=== PATIENT | male | born 1995 | race Caucasian/White ===

== ENCOUNTER 2017-06-08 14:22 | Inpatient (IN) | payer OTHER ==
[~2017-06-08] VITALS: Ht 167.6 cm; Wt 57.7 kg
[2017-06-08] MEDS ORDERED: ONDANSETRON 2MG/ML, 2ML ONE (14:54)
[2017-06-08] MEDS ORDERED: SODIUM CHLORIDE 0.9% 1,000ML IVBOLUS ONE ×2 (15:00)
[2017-06-08] MEDS ORDERED: SODIUM CHLORIDE FLUSH 10ML SYR IVF ONE ×2 (15:00)
[2017-06-08 15:05] LABS: PH, VENOUS 7.172 pH (7.320-7.420)
[2017-06-08 15:13] LABS: HEMATOCRIT 61.4 % (39.2-51.8); HEMOGLOBIN 20.7 g/dL (13.7-18.0); WHITE BLOOD COUNT 30.2 x10^3/uL (4.5-13.2)
[2017-06-08 15:18] LABS: DIFF TOTAL CELLS COUNTED 100 CELL DIFF
[2017-06-08 15:22] LABS: BLOOD UREA NITROGEN 31 mg/dL (7-18)
[2017-06-08 15:25] LABS: ASPARTATE AMINO TRANSFERASE 25 U/L (15-37)
[2017-06-08] MEDS ORDERED: ONDANSETRON 2MG/ML, 2ML IVPush ONE (15:30)
[2017-06-08 16:01] LABS: VERIFY COUNTS? YES
[2017-06-08] MEDS ORDERED: INSULIN SINGLE DOSE, ER SQ-INSULIN ONE (16:20)
[2017-06-08] MEDS ORDERED: REGULAR INSULIN 62.5 UNITS in SODIUM CHLORIDE 0.9% 249.375 ML IV PRN ×2 (16:30→17:30)
[2017-06-08] MEDS ORDERED: INSULIN REGULAR 100 UNITS/ML, 3ML VIAL IVPush ONE (16:30)
[2017-06-08] MEDS ORDERED: PROMETHAZINE 25 MG/ML, 1ML ONE (16:30)
[2017-06-08] MEDS ORDERED: TEMAZEPAM 15 MG CAPSULE PO PRN (17:30)
[2017-06-08] MEDS ORDERED: ONDANSETRON 2MG/ML, 2ML IVPush PRN (17:30)
[2017-06-08] MEDS ORDERED: POLYETHYLENE GLYCOL 17 GM PACKET PO PRN (17:30)
[2017-06-08] MEDS ORDERED: LABETALOL 5MG/ML, 20ML IVPush PRN (17:30)
[2017-06-08] MEDS ORDERED: ACETAMINOPHEN 325 MG TABLET PO PRN (17:30)
[2017-06-08] MEDS ORDERED: INSULIN PUMP SC (17:34)
[2017-06-08] MEDS: D5%-0.45NACL+KCL 20MEQ 1,000 ML IV SCH ×2 (17:56→22:12)
[2017-06-08] MEDS ORDERED: PROMETHAZINE 25 MG/ML, 1ML IM PRN (18:00)
[2017-06-08] MEDS: HEPARIN 5,000 UNITS/ML, 1ML SQ SCH (18:46)
[2017-06-08] MEDS ORDERED: SODIUM CHLORIDE 0.9% 1,000 ML IV ONE (19:00)
[2017-06-08 19:10] LABS: BLOOD UREA NITROGEN 26 mg/dL (7-18)
[2017-06-08 22:02] LABS: DAU SCREEN DISCLAIMER
[2017-06-08 22:30] LABS: BLOOD UREA NITROGEN 23 mg/dL (7-18)
[2017-06-09] MEDS: HEPARIN 5,000 UNITS/ML, 1ML SQ SCH (02:28)
[2017-06-09] MEDS ORDERED: SODIUM CHLORIDE 0.9% 100 ML IV SCH (02:30)
[2017-06-09] MEDS: SODIUM CHLORIDE 0.9% 1,000 ML IV SCH ×2 (03:03→07:37)
[2017-06-09 04:00] VITALS: BP 130/70
[2017-06-09 04:57] LABS: HEMATOCRIT 45.9 % (39.2-51.8); WHITE BLOOD COUNT 19.2 x10^3/uL (4.5-13.2)
[2017-06-09 05:06] LABS: BLOOD UREA NITROGEN 16 mg/dL (7-18)
[2017-06-09] MEDS: D5%-0.45NACL+KCL 20MEQ 1,000 ML IV SCH (05:10)
[2017-06-09 05:11] LABS: ASPARTATE AMINO TRANSFERASE 16 U/L (15-37)
[2017-06-09] MEDS ORDERED: POTASSIUM PHOS 4.4 MEQ/ML IV ONE (05:30)
[2017-06-09] MEDS ORDERED: POTASSIUM PHOSPHATE 22 MEQ in SODIUM CHLORIDE 0.9% 250 ML IV ONE (06:00)
[2017-06-09] MEDS: SENNA/DOCUSATE TABLET PO SCH (07:37)
[2017-06-09 08:19] LABS: BLOOD UREA NITROGEN 14 mg/dL (7-18)
[2017-06-09] MEDS ORDERED: INSULIN ASPART 100 UNITS/ML, PEN SQ-INSULIN SCH (11:00)
[2017-06-09 15:18] VITALS: BP 141/95
[2017-06-09 19:16] VITALS: BP 131/80
[2017-06-10 01:01] VITALS: BP 158/106
[2017-06-10] MEDS ORDERED: SODIUM CHLORIDE 0.9% 1,000 ML IV SCH (03:00)
[2017-06-10 05:21] LABS: HEMATOCRIT 43.1 % (39.2-51.8); WHITE BLOOD COUNT 8.9 x10^3/uL (4.5-13.2)
[2017-06-10 05:52] LABS: BLOOD UREA NITROGEN 12 mg/dL (7-18)
[2017-06-10 07:00] VITALS: BP 137/78
[2017-06-10] MEDS: SENNA/DOCUSATE TABLET PO SCH (09:00)
[2017-06-10] MEDS ORDERED: MAGNESIUM SULFATE PMX 4GM/100M 100 ML IV ONE (12:30)
[2017-06-10] MEDS ORDERED: POTASSIUM PHOSPHATE 44 MEQ in SODIUM CHLORIDE 0.9% 500 ML IV ONE (12:30)
[2017-06-10 12:54] VITALS: BP 135/89
[2017-06-10] MEDS: METOCLOPRAMIDE 5 MG/ML, 2ML IVPush PRN ×2 (13:38→20:46)
[2017-06-10 20:39] VITALS: BP 144/84
[2017-06-11 01:25] VITALS: BP 134/77
[2017-06-11 05:52] LABS: BLOOD UREA NITROGEN 13 mg/dL (7-18)
[2017-06-11 06:27] VITALS: BP 136/96
[2017-06-11] MEDS ORDERED: SENNA/DOCUSATE TABLET PO SCH (09:00)
[2017-06-11 12:36] VITALS: BP 137/83
[2017-06-11] MEDS ORDERED: METO10TA82 PO (13:52)
== END 2017-06-11 15:39 | disposition home or self-care (01) | DRG 637 ==
LOC: ED 16:40 → EDIP 17:04 → CCU 18:12 → 4EST 06-09 13:07
PROVIDERS: ADMIT Internal Medicine; ATTEND Internal Medicine
DX: E13.10 Other specified diabetes mellitus with ketoacidosis without coma (principal); N17.0 Acute kidney failure with tubular necrosis; E83.39 Other disorders of phosphorus metabolism; D75.1 Secondary polycythemia; R65.10 Systemic inflammatory response syndrome (SIRS) of non-infectious origin without acute organ dysfunction; E87.1 Hypo-osmolality and hyponatremia; E86.0 Dehydration; D72.829 Elevated white blood cell count, unspecified; F12.90 Cannabis use, unspecified, uncomplicated; Z96.41 Presence of insulin pump (external) (internal); Z79.4 Long term (current) use of insulin; Z79.899 Other long term (current) drug therapy
CPT/HCPCS: 36415; 71010; 80048; 80053; 80307; 81001; 82010; 82803; 82962; 83036; 83690; 83735; 83880; 84100; 84443; 85025; 87081; 93005; 96361; 96374; J1644; J1815; J2405; J2765; J3475; J3480; J7030; J7040; J7050

== ENCOUNTER 2017-06-12 04:43 | Inpatient (IN) | payer OTHER ==
[~2017-06-12] VITALS: Ht 172.7 cm; Wt 58.5 kg
[~2017-06-12 04:43] MED LIST: INSULIN PUMP SC; METO10TA82 PO
[2017-06-12] MEDS ORDERED: ONDANSETRON 2MG/ML, 2ML IM ONE (05:00)
[2017-06-12] MEDS ORDERED: SODIUM CHLORIDE 0.9% 1,000ML IVBOLUS ONE ×2 (05:00)
[2017-06-12] MEDS ORDERED: REGULAR INSULIN 62.5 UNITS in SODIUM CHLORIDE 0.9% 249.375 ML IV PRN (05:22)
[2017-06-12 06:00] LABS: BLOOD UREA NITROGEN 19 mg/dL (7-18)
[2017-06-12 06:04] LABS: HEMATOCRIT 57.2 % (39.2-51.8); HEMOGLOBIN 19.2 g/dL (13.7-18.0); WHITE BLOOD COUNT 19.9 x10^3/uL (4.5-13.2)
[2017-06-12 06:05] LABS: ASPARTATE AMINO TRANSFERASE 11 U/L (15-37)
[2017-06-12 06:09] LABS: PH, VENOUS 6.918 pH (7.320-7.420)
[2017-06-12] MEDS ORDERED: ONDANSETRON 2MG/ML, 2ML ONE (06:24)
[2017-06-12 06:28] LABS: DIFF TOTAL CELLS COUNTED 100 CELL DIFF
[2017-06-12] MEDS: SODIUM CHLORIDE 0.9% 1,000 ML IV SCH ×2 (06:29→10:30)
[2017-06-12 06:30] LABS: VERIFY COUNTS? YES
[2017-06-12] MEDS ORDERED: ONDANSETRON 2MG/ML, 2ML IVPush ONE (06:30)
[2017-06-12] MEDS ORDERED: SODIUM CHLORIDE 0.9% 1,000 ML IV SCH (07:22)
[2017-06-12] MEDS ORDERED: ONDANSETRON 2MG/ML, 2ML IVPush PRN (07:30)
[2017-06-12] MEDS ORDERED: PROMETHAZINE 25 MG/ML, 1ML IM PRN (07:30)
[2017-06-12] MEDS ORDERED: BISACODYL 10 MG SUPP PR PRN (07:30)
[2017-06-12] MEDS ORDERED: DOCUSATE 100 MG CAPSULE PO PRN (07:30)
[2017-06-12] MEDS ORDERED: POLYETHYLENE GLYCOL 17 GM PACKET PO PRN (07:30)
[2017-06-12] MEDS ORDERED: ENOXAPARIN 40 MG/0.4 ML ONE (08:55)
[2017-06-12] MEDS ORDERED: FAMOTIDINE 20 MG/2 ML ONE (08:56)
[2017-06-12] MEDS: FAMOTIDINE 20 MG/2 ML IVPush SCH ×2 (09:02→21:45)
[2017-06-12] MEDS: ENOXAPARIN 40 MG/0.4 ML SQ SCH (09:02)
[2017-06-12 09:15] LABS: BLOOD UREA NITROGEN 17 mg/dL (7-18)
[2017-06-12] MEDS: REGULAR INSULIN 62.5 UNITS in SODIUM CHLORIDE 0.9% 249.375 ML IV PRN (09:33)
[2017-06-12 10:47] VITALS: BP 124/58
[2017-06-12] MEDS: D5%-0.45% NACL 1,000 ML IV SCH (12:38)
[2017-06-12 13:06] LABS: BLOOD UREA NITROGEN 13 mg/dL (7-18)
[2017-06-12 17:38] LABS: BLOOD UREA NITROGEN 11 mg/dL (7-18)
[2017-06-12 21:51] LABS: BLOOD UREA NITROGEN 11 mg/dL (7-18)
[2017-06-13] MEDS: D5%-0.45% NACL 1,000 ML IV SCH ×3 (00:45→15:00)
[2017-06-13] MEDS ORDERED: ALUMINUM/MAG/SIMETHICONE 30 ML UDC PO PRN (01:00)
[2017-06-13] MEDS: REGULAR INSULIN 62.5 UNITS in SODIUM CHLORIDE 0.9% 249.375 ML IV PRN (03:33)
[2017-06-13 04:21] LABS: HEMATOCRIT 41.2 % (39.2-51.8); HEMOGLOBIN 14.3 g/dL (13.7-18.0)
[2017-06-13 04:29] LABS: ASPARTATE AMINO TRANSFERASE 10 U/L (15-37); BLOOD UREA NITROGEN 7 mg/dL (7-18)
[2017-06-13] MEDS ORDERED: POTASSIUM CHLORIDE 10% 40 MEQ/30 ML UDC PO ONE (06:00)
[2017-06-13] MEDS ORDERED: POTASSIUM CHLORIDE 20 MEQ TAB.ER.PRT PO ONE ×2 (06:30→10:30)
[2017-06-13] MEDS: FAMOTIDINE 20 MG/2 ML IVPush SCH (08:39)
[2017-06-13] MEDS: ENOXAPARIN 40 MG/0.4 ML SQ SCH (08:39)
[2017-06-13] MEDS ORDERED: MAALOX/HYOSCYAMINE/LIDOCAINE 45 ML BTL PO ONE ×2 (10:30→14:30)
== END 2017-06-13 16:17 | disposition home or self-care (01) | DRG 638 ==
LOC: ED 04:51 → EDIP 06:16 → CCU 11:12
PROVIDERS: ADMIT Hospitalist; ATTEND Hospitalist
DX: E10.10 Type 1 diabetes mellitus with ketoacidosis without coma (principal); E87.1 Hypo-osmolality and hyponatremia; N17.9 Acute kidney failure, unspecified; E87.5 Hyperkalemia; E86.9 Volume depletion, unspecified; D72.829 Elevated white blood cell count, unspecified; E87.6 Hypokalemia; K21.9 Gastro-esophageal reflux disease without esophagitis; Z79.4 Long term (current) use of insulin
CPT/HCPCS: 36415; 71010; 80048; 80053; 81001; 82010; 82803; 82962; 83605; 83690; 83735; 84100; 85025; 87040; 87081; 87880; 93005; 96361; 96374; 96375; J1650; J1815; J2405; J2550; J7030; J7050; S0028